=== PATIENT | male | born 1940 | race Caucasian/White ===

== ENCOUNTER 2018-09-13 17:22 | Emergency (ER) | payer OTHER ==
[~2018-09-13] VITALS: Ht 180.3 cm; Wt 98.6 kg
[~2018-09-13 17:22] MED LIST: ADVAIR 250/501 DISK INH; ASPIRIN 81 MG E81 MG PO; CARDIZEM LA360 MG; DESYREL50 MG PO; DOLOPHINE HCL10 MG PO; EFFEXOR75 MG PO; FLOMAX0.4 MG PO; FOLATE0.4 MG PO; GLUCOPHAGE500 MG PO; IMDUR60 MG PO; LANOXIN125 MCG PO; LIPITOR20 MG PO; NOVOLOG100 U/M1 SQ; PEPCID20 MG PO; PROSCAR5 MG PO; VOLTAREN75 MG PO; WELLBUTRIN XL300 M1 PO; ZEBETA10 MG PO
[2018-09-13 17:48] VITALS: Ht 180.3 cm; Wt 98.6 kg
[2018-09-13] MEDS ORDERED: PROVENTIL/2.5 MG/3 M INH (17:51)
[2018-09-13] MEDS ORDERED: SYMBICORT 16010.2 GM INH (17:53)
[2018-09-13] MEDS ORDERED: CELEXA20 MG PO (17:54)
[2018-09-13] MEDS ORDERED: COMBIVENT RESPIM4 GM INH (17:54)
[2018-09-13] MEDS ORDERED: VITAMIN B-121000 MCG PO (17:54)
[2018-09-13] MEDS ORDERED: HYDROCODON-ACE1 EA10 PO (17:55)
[2018-09-13] MEDS ORDERED: MAGNESIUM OXID420 MG PO (17:56)
[2018-09-13] MEDS ORDERED: LISINOPRIL2.5 MG PO (17:56)
[2018-09-13] MEDS ORDERED: NIZORAL 2 % SH120 ML TOPICAL (17:56)
[2018-09-13] MEDS ORDERED: OMEPRAZOLE20 M1 PO (17:58)
[2018-09-13] MEDS ORDERED: LOPRESSOR25 MG PO (17:58)
[2018-09-13] MEDS ORDERED: PRAVACHOL80 MG PO (17:58)
[2018-09-13] MEDS ORDERED: KENALOG 0.1 % O15 GM TOPICAL (17:59)
[2018-09-13] MEDS ORDERED: PREDNISONE5 MG PO (17:59)
[2018-09-13] MEDS ORDERED: FLOMAX0.4 MG PO (17:59)
[2018-09-13] MEDS ORDERED: TORADOL10 MG PO (20:12)
[2018-09-13 20:40] VITALS: BP 175/85
== END 2018-09-13 20:40 | disposition home or self-care (01) ==
LOC: D.ER 17:22
DX: S20.211A Contusion of right front wall of thorax, initial encounter (principal); W19.XXXA Unspecified fall, initial encounter; I10 Essential (primary) hypertension; E11.9 Type 2 diabetes mellitus without complications; J44.9 Chronic obstructive pulmonary disease, unspecified

== ENCOUNTER 2019-01-07 10:02 | Emergency (ER) | payer OTHER ==
[~2019-01-07] VITALS: Ht 180.3 cm; Wt 98.2 kg
[~2019-01-07 10:02] MED LIST changes: +CELEXA20 MG PO; +COMBIVENT RESPIM4 GM INH; +HYDROCODON-ACE1 EA10 PO; +KENALOG 0.1 % O15 GM TOPICAL; +LISINOPRIL2.5 MG PO; +LOPRESSOR25 MG PO; +MAGNESIUM OXID420 MG PO; +NIZORAL 2 % SH120 ML TOPICAL; +OMEPRAZOLE20 M1 PO; +PRAVACHOL80 MG PO; +PREDNISONE5 MG PO; +PROVENTIL/2.5 MG/3 M INH; +SYMBICORT 16010.2 GM INH; +TORADOL10 MG PO; +VITAMIN B-121000 MCG PO
[2019-01-07 10:14] VITALS: Ht 180.3 cm; Wt 98.2 kg
[2019-01-07] MEDS ORDERED: OPTIVE SENSITI1 EACH EACH EYE (10:22)
[2019-01-07] MEDS ORDERED: DILTIAZEM 24HR240 M4 PO (10:24)
[2019-01-07] MEDS ORDERED: DOK250 MG PO (10:26)
[2019-01-07] MEDS ORDERED: FERROUS FUMARA324 MG PO (10:26)
[2019-01-07] MEDS ORDERED: NEURONTIN 300300 MG PO (10:27)
[2019-01-07] MEDS ORDERED: ZADITOR5 ML EACH EYE (10:28)
[2019-01-07] MEDS ORDERED: LIDODERM 5 %1 PATCH TRANSDERM (10:29)
[2019-01-07] MEDS ORDERED: LIDOCAINE 5 % O35 GM TOPICAL (10:29)
[2019-01-07] MEDS ORDERED: MOBIC7.5 MG PO (10:32)
[2019-01-07] MEDS ORDERED: GLUCOPHAGE1000 MG PO (10:33)
[2019-01-07 12:06] LABS: BASOPHILS 0.1 % (0-2); EOSINOPHILS 1.5 % (0-7); HEMATOCRIT 38.7 % (42.0-54.0); HEMOGLOBIN 13.1 g/dL (13.5-17.5); IMMATURE GRANULOCYTES 0.2 % (0-5); LYMPHOCYTES 8.6 % (15-50); MCH 30.7 pg (26.0-34.0); MCHC 33.9 g/dL (31.0-37.0); MCV 90.6 fL (80.0-100.0); MEAN PLATELET VOLUME 10.5 fL (7.4-10.4); MONOCYTES 10.2 % (2-11); NEUTROPHILS 79.4 % (40-80); PLATELET COUNT 193 10x3/uL (130-400); RBC 4.27 10x6/uL (4.20-6.10); RDW 12.7 % (11.5-14.5); WBC 9.7 10x3/uL (4.8-10.8)
[2019-01-07 12:20] LABS: ALBUMIN 3.4 g/dL (3.4-5.0); ALKALINE PHOSPHATASE 77 U/L (46-116); ALT (SGPT) 22 U/L (10-68); BILIRUBIN - TOTAL 0.38 mg/dL (0.2-1.3); CALC OSMOLALITY 270 mosm/kg (275-300); CALCIUM 9.5 mg/dL (8.5-10.1); CARBON DIOXIDE 26.4 mmol/L (21.0-32.0); CHLORIDE - SERUM 100 mmol/L (98-107); CREATININE - SERUM 0.9 mg/dL (0.6-1.3); GLUCOSE 104 mg/dL (74-106); POTASSIUM - SERUM 4.2 mmol/L (3.5-5.1); PROTEIN - SERUM 6.9 g/dL (6.4-8.2); SODIUM 135 mmol/L (136-145); UREA NITROGEN 14 mg/dL (7-18); eGFR NON AFRICAN AMERICAN 87 mL/min (90-120)
[2019-01-07 17:21] VITALS: BP 144/96
== END 2019-01-07 20:12 | disposition other institution (70) ==
LOC: D.ER 10:02
PROVIDERS: Family Medicine
DX: H05.011 Cellulitis of right orbit (principal); E11.9 Type 2 diabetes mellitus without complications; I10 Essential (primary) hypertension; J44.9 Chronic obstructive pulmonary disease, unspecified; K21.9 Gastro-esophageal reflux disease without esophagitis

== ENCOUNTER 2019-04-26 16:44 | Emergency (ER) | payer OTHER ==
[~2019-04-26] VITALS: Ht 180.3 cm; Wt 95.9 kg
[~2019-04-26 16:44] MED LIST changes: +DILTIAZEM 24HR240 M4 PO; +DOK250 MG PO; +FERROUS FUMARA324 MG PO; +GLUCOPHAGE1000 MG PO; +LIDOCAINE 5 % O35 GM TOPICAL; +LIDODERM 5 %1 PATCH TRANSDERM; +MOBIC7.5 MG PO; +NEURONTIN 300300 MG PO; +OPTIVE SENSITI1 EACH EACH EYE; +ZADITOR5 ML EACH EYE
[2019-04-26 16:58] VITALS: Ht 180.3 cm; Wt 95.9 kg
[2019-04-26 18:40] VITALS: BP 105/78
== END 2019-04-26 18:42 | disposition home or self-care (01) ==
LOC: D.ER 16:44
DX: S61.412A Laceration without foreign body of left hand, initial encounter (principal); W19.XXXA Unspecified fall, initial encounter; Y93.01 Activity, walking, marching and hiking; Y92.9 Unspecified place or not applicable; E11.9 Type 2 diabetes mellitus without complications; Z79.84 Long term (current) use of oral hypoglycemic drugs; I10 Essential (primary) hypertension; J44.9 Chronic obstructive pulmonary disease, unspecified

== ENCOUNTER 2019-12-01 08:15 | Emergency (ER) | payer OTHER ==
[~2019-12-01] VITALS: Ht 180.3 cm; Wt 96.4 kg
[2019-12-01 08:17] VITALS: Ht 180.3 cm; Wt 96.4 kg
[2019-12-01 09:07] LABS: BASOPHILS 0.2 % (0-2); EOSINOPHILS 4.3 % (0-7); HEMATOCRIT 41.3 % (42.0-54.0); HEMOGLOBIN 13.5 g/dL (13.5-17.5); IMMATURE GRANULOCYTES 0.3 % (0-5); LYMPHOCYTES 17.5 % (15-50); MCH 31.5 pg (26.0-34.0); MCHC 32.7 g/dL (31.0-37.0); MCV 96.3 fL (80.0-100.0); MONOCYTES 8.2 % (2-11); NEUTROPHILS 69.5 % (40-80); RBC 4.29 10x6/uL (4.20-6.10); RDW 12.3 % (11.5-14.5); WBC 10.4 10x3/uL (4.8-10.8)
[2019-12-01 09:08] LABS: PLATELET COUNT 276 10x3/uL (130-400)
[2019-12-01 09:19] LABS: APTT 25.1 SECONDS (22.8-39.4); INR 1.05 (0.85-1.17); PROTIME 13.6 SECONDS (11.6-15.0)
[2019-12-01 09:29] LABS: CALC OSMOLALITY 277 mosm/kg (275-300); CALCIUM 9.1 mg/dL (8.5-10.1); CARBON DIOXIDE 33.1 mmol/L (21.0-32.0); CHLORIDE - SERUM 102 mmol/L (98-107); GLUCOSE 89 mg/dL (74-106); POTASSIUM - SERUM 4.2 mmol/L (3.5-5.1); SODIUM 140 mmol/L (136-145); UREA NITROGEN 12 mg/dL (7-18); eGFR NON AFRICAN AMERICAN 77 mL/min (90-120)
[2019-12-01 09:42] LABS: BILIRUBIN NEGATIVE (NEGATIVE); GLUCOSE NEGATIVE (NEGATIVE); KETONE NEGATIVE (NEGATIVE); NITRITE NEGATIVE (NEGATIVE); SPECIFIC GRAVITY 1.015 (1.005-1.020); UROBILINOGEN NORMAL (NORMAL)
[2019-12-01 09:44] LABS: ALBUMIN 3.4 g/dL (3.4-5.0); ALKALINE PHOSPHATASE 76 U/L (30-120); ALT (SGPT) 18 U/L (10-68); BILIRUBIN - TOTAL 0.26 mg/dL (0.2-1.3); CKMB 3.7 U/L (0.0-3.6); CREATINE KINASE 128 UL (21-232); MAGNESIUM - SERUM 1.4 mg/dL (1.8-2.4); PROTEIN - SERUM 6.9 g/dL (6.4-8.2); THYROID STIMULATING HORMONE 2.06 uIU/mL (0.36-3.74)
[2019-12-01 09:48] LABS: TROPONIN-I < 0.017 ng/mL (0.000-0.060)
[2019-12-01 09:59] LABS: UDS - AMPHET NEGATIVE QUAL (NEGATIVE); UDS - BARB NEGATIVE QUAL (NEGATIVE); UDS - BENZO NEGATIVE QUAL (NEGATIVE); UDS - COCAINE NEGATIVE QUAL (NEGATIVE); UDS - OPIATE POSITIVE QUAL (NEGATIVE); UDS - PCP NEGATIVE QUAL (NEGATIVE); UDS - THC NEGATIVE QUAL (NEGATIVE)
[2019-12-01 12:16] VITALS: BP 132/76
== END 2019-12-01 12:17 | disposition home or self-care (01) ==
LOC: D.ER 08:15
PROVIDERS: Family Medicine
DX: R53.81 Other malaise (principal); J44.9 Chronic obstructive pulmonary disease, unspecified; R25.1 Tremor, unspecified; E11.9 Type 2 diabetes mellitus without complications; I10 Essential (primary) hypertension; Z79.84 Long term (current) use of oral hypoglycemic drugs; Z99.81 Dependence on supplemental oxygen

== ENCOUNTER 2020-02-06 09:37 | Inpatient (IN) | payer OTHER ==
[~2020-02-06] VITALS: Ht 180.3 cm; Wt 95.7 kg
[2020-02-06] VITALS (7 sets, daily range): BP systolic 105–134; BP diastolic 62–75; BMI 26.1
[2020-02-06 10:11] LABS: BASOPHILS 0.2 % (0-2); EOSINOPHILS 1.8 % (0-7); HEMATOCRIT 43.7 % (42.0-54.0); HEMOGLOBIN 14.5 g/dL (13.5-17.5); IMMATURE GRANULOCYTES 0.3 % (0-5); LYMPHOCYTES 9.3 % (15-50); MCH 30.8 pg (26.0-34.0); MCHC 33.2 g/dL (31.0-37.0); MCV 92.8 fL (80.0-100.0); MEAN PLATELET VOLUME 9.9 fL (7.4-10.4); MONOCYTES 9.3 % (2-11); NEUTROPHILS 79.1 % (40-80); PLATELET COUNT 265 10x3/uL (130-400); RBC 4.71 10x6/uL (4.20-6.10); RDW 12.1 % (11.5-14.5); WBC 10.6 10x3/uL (4.8-10.8)
[2020-02-06 10:18] LABS: ANION GAP 14.6 mmol/L (8-16); CALCIUM 9.1 mg/dL (8.5-10.1); CARBON DIOXIDE 28.4 mmol/L (21.0-32.0); CREATININE - SERUM 1.2 mg/dL (0.6-1.3)
[2020-02-06 10:21] LABS: APTT 28.8 SECONDS (22.8-39.4); INR 1.19 (0.85-1.17)
[2020-02-06 10:34] LABS: ALBUMIN 3.6 g/dL (3.4-5.0); BILIRUBIN - TOTAL 0.38 mg/dL (0.2-1.3); PROTEIN - SERUM 7.7 g/dL (6.4-8.2)
--- NOTE | 2020-02-06 17:20 | NUR ---
ARRIVE TO ROOM VIA STRETCHER FROM ER ACCOMPANIED BY ER STAFF. ER TREATS FOR BED BUGS BEFORE ARRIVING TO FLOOR. DANIELLE WHITAKER COMPLETES ADMISSION.
--- NOTE | 2020-02-06 17:25 | NUR ---
RECIEVED PT FROM ED VIA STRETCHER PT A&OX4 TRANSFERED FROM STRETCHER TO BED. NO COMPLAINTS AT THIS TIME.
--- NOTE | 2020-02-06 19:00 | NUR ---
REPORT RECEIVED, WILL CONTINUE POC. PATIENT IS AAOX4, SITTING UP IN BED. NO S/S OF DISTRESS OBSERVED, RR EVEN AND UNLABORED ON 2L O2 VIA NC. PATIENT REQUESTING HIS MEDS. INFORMED PATIENT OF WHEN HIS MEDS ARE DO, PATIENT STATES UNDERSTANDING. PATIENT DENIES FURTHER NEEDS AT THIS TIME. CL IN REACH, BED LOCKED AND LOWERED. CONTACT PRECAUTIONS MAINTAINED. WILL CTM.
--- NOTE | 2020-02-07 01:10 | NUR ---
I have reviewed this patient and I concur with the Shift Assessment completed by the Licensed Practical Nurse today this shift.
[2020-02-07 04:02] VITALS: BP 145/90
[2020-02-07 06:47] LABS: BASOPHILS 0.2 % (0-2); EOSINOPHILS 4.2 % (0-7); HEMOGLOBIN 13.1 g/dL (13.5-17.5); IMMATURE GRANULOCYTES 0.3 % (0-5); MCH 30.5 pg (26.0-34.0); MCHC 32.8 g/dL (31.0-37.0); MCV 93.2 fL (80.0-100.0); MEAN PLATELET VOLUME 10.3 fL (7.4-10.4); MONOCYTES 9.2 % (2-11); NEUTROPHILS 60.1 % (40-80); PLATELET COUNT 214 10x3/uL (130-400); RBC 4.29 10x6/uL (4.20-6.10); RDW 12.2 % (11.5-14.5)
[2020-02-07 06:54] LABS: WBC 5.8 10x3/uL (4.8-10.8)
[2020-02-07 07:00] LABS: ALBUMIN 3.1 g/dL (3.4-5.0); ALKALINE PHOSPHATASE 76 U/L (30-120); ALT (SGPT) 15 U/L (10-68); BILIRUBIN - TOTAL 0.18 mg/dL (0.2-1.3); CALC OSMOLALITY 279 mosm/kg (275-300); CALCIUM 8.4 mg/dL (8.5-10.1); CARBON DIOXIDE 29.7 mmol/L (21.0-32.0); CHLORIDE - SERUM 103 mmol/L (98-107); GLUCOSE 91 mg/dL (74-106); MAGNESIUM - SERUM 1.4 mg/dL (1.8-2.4); POTASSIUM - SERUM 3.6 mmol/L (3.5-5.1); PROTEIN - SERUM 6.2 g/dL (6.4-8.2); SODIUM 141 mmol/L (136-145); UREA NITROGEN 11 mg/dL (7-18)
[2020-02-07 07:01] LABS: CREATININE - SERUM 0.8 mg/dL (0.6-1.3); eGFR NON AFRICAN AMERICAN > 90 mL/min (90-120)
[2020-02-07 07:58] VITALS: BP 132/76
--- NOTE | 2020-02-07 08:12 | NUR ---
AM ROUNDING DONE WITH PATIENT IN CONTACT ISOLATION. GRAND TRAVERSE, RIGHT FA PIV SEEN WITH NS INFUSING AT 75 CC/HR. ON 2L PER NC. BILATERAL SCD ARE ON AND IN USE CORRECTLY. ON EP, WILL LOOK FOR LABS. DENIES NEEDS AT THIS TIME.
[2020-02-07 11:53] VITALS: BP 146/75
[2020-02-07 12:40] LABS: BILIRUBIN NEGATIVE (NEGATIVE); KETONE NEGATIVE (NEGATIVE); NITRITE NEGATIVE (NEGATIVE); UROBILINOGEN NORMAL mg/dL (< 2)
[2020-02-07 13:31] VITALS: Ht 180.3 cm; Wt 95.7 kg
--- NOTE | 2020-02-07 16:07 | MORECARE ---
CASE MANAGEMENT DISCHARGE SUMMARY PATIENT: ANNIE GALLARDO DANILO UNIT: [id number] ADM DATE: 02/06/20 AGE: 79 : 42 SEX: M ROOM/BED: D.2105 AUTHOR: ANATOLY HARRISON PHYSICIAN: REFERRING PHYSICIAN: STEFANO AUSTIN MD DATE OF SERVICE: 02/07/20 Discharge Plan Patient Name: ANNIE GALLARDO Facility: [facility]:[place] : 1940 Planned Disposition: Home Anticipated Discharge Date: Discharge Date: Expected LOS: Initial Reviewer: [email or web address] Initial Review Date: 02/07/2020 Generated: 02/07/20 5:07 pm Patient Name: ANNIE GALALRDO Page 22399 at 1607 All edits/amendments must be made on the electronic document DICTATION DATE: 02/07/201606 SKIMMER SCOOP OPERATOR: HUNG 02/07/201606 RPT#: [id number] DC DATE: STATUS: ADM IN [facility] [address] [place] [address] END OF REPORT
[2020-02-07 16:10] VITALS: BP 94/70
--- NOTE | 2020-02-07 16:17 | MORECARE ---
CASE MANAGEMENT DISCHARGE SUMMARY PATIENT: ANNIE GALLARDO DANILO UNIT: [id number] ADM DATE: 02/06/20 AGE: 79 : 42 SEX: M ROOM/BED: D.2105 AUTHOR: ANATOLY HARRISON PHYSICIAN: REFERRING PHYSICIAN: STEFANO AUSTIN MD DATE OF SERVICE: 02/07/20 Discharge Plan Patient Name: ANNIE GALLARDO [facility] [facility] 1940 Planned Disposition: Home Anticipated Discharge Date: Discharge Date: Expected LOS: Initial Reviewer: [email or web address] Initial Review Date: 02/07/2020 Generated: 02/07/20 5:16 pm DCPIA - Discharge Planning Initial Assessment Updated by [email or web address]: Aye Johnson on 02/07/20 4:14 pm * Is the patient Alert and Oriented? Yes * How many steps to enter\exit or inside your home? 0/0 * PCP [place] clinic in [place] * Pharmacy [facility] * Preadmission Environment Home with Family * ADLs Partial Dependent * Partial ADLs (Assistance needed) Ambulation Medication Management * Equipment Cane Walker Wheelchair * List name and contact numbers for known caregivers / representatives who currently or will assist patient after discharge: Suzy Fraser - caregiver - [phone] Quang Mcelroyin - [phone] Suzy Plasencia - girlfriend - no phone * Verbal permission to speak to the caregivers and representatives has been obtained from the patient. Yes * Community resources currently utilized [place] Services * Please name any agencies selected above. [facility] * Additional services required to return to the preadmission environment? Yes * Can the patient safely return to the preadmission environment? Yes * Has this patient been hospitalized within the prior 30 days at any hospital? No Last DP export: 02/07/20 3:07 p Patient Name: ANNIE GALLARDO Page 44415 at 1617 All edits/amendments must be made on the electronic document DICTATION DATE: 02/07/20 1616 MANAGER MAIL: HUNG 02/07/20 1616 RPT#: [id number] DC DATE: STATUS: ADM IN [facility] [address] [place] [address] END OF REPORT
--- NOTE | 2020-02-07 16:26 | MORECARE ---
CASE MANAGEMENT DISCHARGE SUMMARY PATIENT: ANNIE GALLARDO DANILO UNIT: [id number] ADM DATE: 02/06/20 AGE: 79 : 42 SEX: M ROOM/BED: D.2105 AUTHOR: ANATOLY HARRISON PHYSICIAN: REFERRING PHYSICIAN: STEFANO AUSTIN MD DATE OF SERVICE: 02/07/20 Discharge Plan Patient Name: ANNIE GALLARDO [facility] [facility] 1940 Planned Disposition: Home Anticipated Discharge Date: Discharge Date: Expected LOS: Initial Reviewer: [email or web address] Initial Review Date: 02/07/2020 Generated: 02/07/20 5:25 pm DCPIA - Discharge Planning Initial Assessment Updated by [email or web address]: Aye Johnson on 02/07/20 4:14 pm * Is the patient Alert and Oriented? Yes * How many steps to enter\exit or inside your home? 0/0 * PCP [place] clinic in [place] * Pharmacy [facility] * Preadmission Environment Home with Family * ADLs Partial Dependent * Partial ADLs (Assistance needed) Ambulation Medication Management * Equipment Cane Walker Wheelchair * List name and contact numbers for known caregivers / representatives who currently or will assist patient after discharge: Suzy Fraser - caregiver - [phone] Quang Mcelroyin - [phone] Suzy Plasencia - girlfriend - no phone * Verbal permission to speak to the caregivers and representatives has been obtained from the patient. Yes * Community resources currently utilized [place] Services * Please name any agencies selected above. [facility] * Additional services required to return to the preadmission environment? Yes * Can the patient safely return to the preadmission environment? Yes * Has this patient been hospitalized within the prior 30 days at any hospital? No Last DP export: 02/07/20 3:17 p Patient Name: ANNIE GALLARDO Page 26920 at 1626 All edits/amendments must be made on the electronic document DICTATION DATE: 02/07/201625 PLANT FLOOR AUTOMATION MANAGER: HUNG 02/07/206 RPT#: [id number] DC DATE: STATUS: ADM IN [facility] [address] [place] [address] END OF REPORT
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
--- NOTE | 2020-02-07 16:42 | NUR ---
IN ISOLATION STILL, REGULAR DIET IF OFFERED FOR SUPPER. STATES HE IS VERY HAPPY WITH THIS.
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
--- NOTE | 2020-02-07 18:44 | NUR ---
LOURDES GREEN TO CALL BACK AND TELL ME THAT HE IS IN A COVID ROOM AND WILL CALL BACK.
--- NOTE | 2020-02-07 21:00 | NUR ---
PT ASST TO RESTROOM, STATES HE IS CONSTIPATED. SM DARK BM NOTED. STATES IS COULD BE GAS PAIN FROM HIS HERNIA. UPSET WE DONT HAVE PEPTO BUT REFUSES OTHER OPTIONS. CALL LIGHT IN REACH. WILL CTM.
[2020-02-07 22:07] VITALS: BP 118/71
[2020-02-08 02:07] VITALS: BP 141/66
--- NOTE | 2020-02-08 05:02 | NUR ---
PT STATES GAS AND ABD HERNIA PAINS ARE BETTER THIS AM. ENCOURAGED CALL LIGHT FOR ASSISTANCE. WILL CTM.
[2020-02-08 05:48] LABS: BASOPHILS 0 % (0-2); EOSINOPHILS 3.5 % (0-7); HEMATOCRIT 38.6 % (42.0-54.0); HEMOGLOBIN 12.7 g/dL (13.5-17.5); IMMATURE GRANULOCYTES 0.2 % (0-5); LYMPHOCYTES 22.1 % (15-50); MCH 30.6 pg (26.0-34.0); MCHC 32.9 g/dL (31.0-37.0); MEAN PLATELET VOLUME 9.9 fL (7.4-10.4); MONOCYTES 6.4 % (2-11); NEUTROPHILS 67.8 % (40-80); PLATELET COUNT 215 10x3/uL (130-400); RBC 4.15 10x6/uL (4.20-6.10); WBC 6.4 10x3/uL (4.8-10.8)
[2020-02-08 05:51] VITALS: BP 110/74
[2020-02-08 06:16] LABS: ALBUMIN 2.7 g/dL (3.4-5.0); ALKALINE PHOSPHATASE 63 U/L (30-120); ALT (SGPT) 13 U/L (10-68); BILIRUBIN - TOTAL 0.36 mg/dL (0.2-1.3); CALCIUM 8.1 mg/dL (8.5-10.1); CARBON DIOXIDE 25.1 mmol/L (21.0-32.0); CHLORIDE - SERUM 104 mmol/L (98-107); CREATININE - SERUM 0.8 mg/dL (0.6-1.3); GLUCOSE 96 mg/dL (74-106); MAGNESIUM - SERUM 1.2 mg/dL (1.8-2.4); PROTEIN - SERUM 6.2 g/dL (6.4-8.2); SODIUM 138 mmol/L (136-145); eGFR NON AFRICAN AMERICAN > 90 mL/min (90-120)
[2020-02-08 06:20] LABS: CALC OSMOLALITY 273 mosm/kg (275-300); UREA NITROGEN 7 mg/dL (7-18)
--- NOTE | 2020-02-08 08:00 | NUR ---
PT SITTING UP IN BED, RR SLIGHTLY LABORED UPON EXERTION ON 4L NC. COFFEE AND WATER RECIEVED PER REQUEST. CALL LIGHT WITHIN REACH. DEPENDS CHANGED AND PT CLEANED, SMALL BM. DENIES FURTHER NEEDS OR PAIN AT THIS TIME. WILL CONTINUE TO MONITOR.
[2020-02-08 09:37] VITALS: BP 163/76
[2020-02-08 13:18] LABS: C-REACTIVE PROTEIN 0.6 mg/dL (0.0-0.9)
[2020-02-08 15:00] VITALS: BP 134/104
[2020-02-08 20:00] VITALS: BP 157/74
[2020-02-09 00:02] VITALS: BP 136/71
[2020-02-09 04:20] VITALS: BP 155/86
[2020-02-09 05:10] LABS: BASOPHILS 0 % (0-2); EOSINOPHILS 0 % (0-7); HEMATOCRIT 37.7 % (42.0-54.0); HEMOGLOBIN 12.5 g/dL (13.5-17.5); IMMATURE GRANULOCYTES 0.5 % (0-5); LYMPHOCYTES 7.8 % (15-50); MCH 30.9 pg (26.0-34.0); MCHC 33.2 g/dL (31.0-37.0); MCV 93.1 fL (80.0-100.0); MONOCYTES 3.2 % (2-11); NEUTROPHILS 88.5 % (40-80); PLATELET COUNT 233 10x3/uL (130-400); RBC 4.05 10x6/uL (4.20-6.10); WBC 6.2 10x3/uL (4.8-10.8)
[2020-02-09 05:22] LABS: ALKALINE PHOSPHATASE 85 U/L (30-120); ALT (SGPT) 11 U/L (10-68); BILIRUBIN - TOTAL 0.17 mg/dL (0.2-1.3); CALCIUM 8.6 mg/dL (8.5-10.1); CARBON DIOXIDE 27.1 mmol/L (21.0-32.0); CHLORIDE - SERUM 100 mmol/L (98-107); CREATININE - SERUM 0.8 mg/dL (0.6-1.3); MAGNESIUM - SERUM 1.2 mg/dL (1.8-2.4); POTASSIUM - SERUM 4.1 mmol/L (3.5-5.1); PROTEIN - SERUM 6.5 g/dL (6.4-8.2); SODIUM 136 mmol/L (136-145); eGFR NON AFRICAN AMERICAN > 90 mL/min (90-120)
[2020-02-09 05:24] LABS: CALC OSMOLALITY 278 mosm/kg (275-300); GLUCOSE 218 mg/dL (74-106); UREA NITROGEN 12 mg/dL (7-18)
--- NOTE | 2020-02-09 07:20 | NUR ---
RECIEVE REPORT. RESTING IN BED WITH EYES CLOSED. NO SIGNS OF DISTRESS. CONTINUE PLAN OF CARE AND SAFETY PRECAUTIONS.
[2020-02-09 08:34] VITALS: BP 147/87
[2020-02-09 20:00] VITALS: BP 146/51
[2020-02-10 05:31] LABS: BASOPHILS 0 % (0-2); EOSINOPHILS 0 % (0-7); HEMATOCRIT 36.4 % (42.0-54.0); HEMOGLOBIN 12.2 g/dL (13.5-17.5); IMMATURE GRANULOCYTES 0.2 % (0-5); LYMPHOCYTES 4.4 % (15-50); MCH 30.8 pg (26.0-34.0); MCHC 33.5 g/dL (31.0-37.0); MCV 91.9 fL (80.0-100.0); MEAN PLATELET VOLUME 10.5 fL (7.4-10.4); MONOCYTES 7.6 % (2-11); NEUTROPHILS 87.8 % (40-80); PLATELET COUNT 235 10x3/uL (130-400); RBC 3.96 10x6/uL (4.20-6.10); RDW 11.9 % (11.5-14.5)
[2020-02-10 05:51] LABS: WBC 12.5 10x3/uL (4.8-10.8)
[2020-02-10 05:52] LABS: ALBUMIN 2.9 g/dL (3.4-5.0); ALKALINE PHOSPHATASE 74 U/L (30-120); BILIRUBIN - TOTAL 0.11 mg/dL (0.2-1.3); CALCIUM 8.7 mg/dL (8.5-10.1); CHLORIDE - SERUM 102 mmol/L (98-107); CREATININE - SERUM 0.8 mg/dL (0.6-1.3); MAGNESIUM - SERUM 1.5 mg/dL (1.8-2.4); POTASSIUM - SERUM 3.7 mmol/L (3.5-5.1); PROTEIN - SERUM 6.5 g/dL (6.4-8.2); SODIUM 136 mmol/L (136-145); eGFR NON AFRICAN AMERICAN > 90 mL/min (90-120)
[2020-02-10 06:08] LABS: ALT (SGPT) 14 U/L (10-68); CALC OSMOLALITY 275 mosm/kg (275-300); GLUCOSE 156 mg/dL (74-106); UREA NITROGEN 16 mg/dL (7-18)
[2020-02-10 09:28] VITALS: BP 161/82
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
[2020-02-10 12:26] VITALS: BP 163/77
--- NOTE | 2020-02-10 13:53 | NUR ---
Nutrition Follow-up: Pt in droplet isolation; covid-19+. Chart reviewed. Good/fair PO intake recorded. Diet: Regular, Mech Soft PO intake: 75% avg x 3 meals yesterday Wt: 212# (02/06) Labs noted: Glu 156, Mg 1.5, Alb 2.9 Meds noted: Protonix, NS @ 75, electrolyte protocol -Encourage PO intake and honor food preferences within diet restrictions. -Monitor wt; noted daily wts ordered. -RD following.
[2020-02-10 16:13] VITALS: BP 139/83
--- NOTE | 2020-02-10 18:32 | NUR ---
I have reviewed this patient and I concur with the Shift Assessment completed by the Licensed Practical Nurse today this shift.
[2020-02-10 20:00] VITALS: BP 147/60
[2020-02-11 04:00] VITALS: BP 172/68
[2020-02-11 06:36] LABS: BASOPHILS 0 % (0-2); EOSINOPHILS 0.2 % (0-7); HEMATOCRIT 38.1 % (42.0-54.0); HEMOGLOBIN 12.5 g/dL (13.5-17.5); IMMATURE GRANULOCYTES 0.5 % (0-5); LYMPHOCYTES 10.5 % (15-50); MCH 30.5 pg (26.0-34.0); MCHC 32.8 g/dL (31.0-37.0); MCV 92.9 fL (80.0-100.0); MEAN PLATELET VOLUME 10.3 fL (7.4-10.4); MONOCYTES 8.6 % (2-11); NEUTROPHILS 80.2 % (40-80); PLATELET COUNT 241 10x3/uL (130-400); RDW 12.2 % (11.5-14.5)
[2020-02-11 06:57] LABS: ALBUMIN 2.9 g/dL (3.4-5.0); ALKALINE PHOSPHATASE 76 U/L (30-120); ALT (SGPT) 16 U/L (10-68); BILIRUBIN - TOTAL 0.11 mg/dL (0.2-1.3); CALC OSMOLALITY 280 mosm/kg (275-300); CALCIUM 8.7 mg/dL (8.5-10.1); CARBON DIOXIDE 31.7 mmol/L (21.0-32.0); CHLORIDE - SERUM 103 mmol/L (98-107); CREATININE - SERUM 0.8 mg/dL (0.6-1.3); GLUCOSE 142 mg/dL (74-106); MAGNESIUM - SERUM 1.5 mg/dL (1.8-2.4); POTASSIUM - SERUM 3.7 mmol/L (3.5-5.1); PROTEIN - SERUM 6.3 g/dL (6.4-8.2); SODIUM 139 mmol/L (136-145); UREA NITROGEN 15 mg/dL (7-18); eGFR NON AFRICAN AMERICAN > 90 mL/min (90-120)
[2020-02-11 08:33] VITALS: BP 159/83
[2020-02-11 14:22] LABS: ALBUMIN 2.8 g/dL (3.4-5.0); ALKALINE PHOSPHATASE 74 U/L (30-120); ALT (SGPT) 18 U/L (10-68); BILIRUBIN - TOTAL 0.12 mg/dL (0.2-1.3); CALC OSMOLALITY 282 mosm/kg (275-300); CALCIUM 8.7 mg/dL (8.5-10.1); CARBON DIOXIDE 31.6 mmol/L (21.0-32.0); CHLORIDE - SERUM 104 mmol/L (98-107); CREATININE - SERUM 0.8 mg/dL (0.6-1.3); POTASSIUM - SERUM 4.1 mmol/L (3.5-5.1); PROTEIN - SERUM 5.8 g/dL (6.4-8.2); SODIUM 138 mmol/L (136-145); UREA NITROGEN 14 mg/dL (7-18); eGFR NON AFRICAN AMERICAN > 90 mL/min (90-120)
[2020-02-11 14:23] LABS: GLUCOSE 214 mg/dL (74-106)
[2020-02-11 14:32] LABS: BASOPHILS 0.1 % (0-2); EOSINOPHILS 0 % (0-7); HEMATOCRIT 37.9 % (42.0-54.0); HEMOGLOBIN 12.3 g/dL (13.5-17.5); IMMATURE GRANULOCYTES 0.7 % (0-5); LYMPHOCYTES 6.8 % (15-50); MCH 30.4 pg (26.0-34.0); MCHC 32.5 g/dL (31.0-37.0); MCV 93.6 fL (80.0-100.0); MEAN PLATELET VOLUME 10.1 fL (7.4-10.4); MONOCYTES 3.7 % (2-11); NEUTROPHILS 88.7 % (40-80); PLATELET COUNT 229 10x3/uL (130-400); RBC 4.05 10x6/uL (4.20-6.10); RDW 12.2 % (11.5-14.5); WBC 9.2 10x3/uL (4.8-10.8)
--- NOTE | 2020-02-11 18:26 | NUR ---
I have reviewed this patient and I concur with the Shift Assessment completed by the Licensed Practical Nurse today this shift.
--- NOTE | 2020-02-11 19:00 | NUR ---
REPORT RECEIVED, WILL CONTINUE POC. PATIENT RESTING ON LEFT SIDE WITH EYES CLOSED. NO S/S OF DISTRESS OBSERVED, RR EVEN AND UNLABORED ON 4L O2 VIA NC. PIV TO LT FA, PATENT, INFUSING NS @ 75ML/HR. NO NEEDS EXPRESSED AT THIS TIME. CL IN REACH, BED LOCKED AND LOWERED. COVID-19 PRECAUTIONS MAINTAINED. WILL CTM.
[2020-02-11 20:00] VITALS: BP 123/56
[2020-02-12 03:52] VITALS: BP 156/83
[2020-02-12 04:31] LABS: ALT (SGPT) 21 U/L (10-68)
[2020-02-12 11:04] VITALS: BP 154/69
[2020-02-12 21:00] VITALS: BP 136/87
[2020-02-13 03:00] VITALS: BP 162/78
[2020-02-13 05:10] LABS: BASOPHILS 0.1 % (0-2); EOSINOPHILS 0.2 % (0-7); HEMATOCRIT 37.5 % (42.0-54.0); HEMOGLOBIN 12.4 g/dL (13.5-17.5); IMMATURE GRANULOCYTES 1.5 % (0-5); LYMPHOCYTES 5.2 % (15-50); MCH 30.3 pg (26.0-34.0); MCHC 33.1 g/dL (31.0-37.0); MCV 91.7 fL (80.0-100.0); MEAN PLATELET VOLUME 10.4 fL (7.4-10.4); MONOCYTES 6.4 % (2-11); NEUTROPHILS 86.6 % (40-80); PLATELET COUNT 239 10x3/uL (130-400); RBC 4.09 10x6/uL (4.20-6.10); RDW 12.1 % (11.5-14.5); WBC 11.4 10x3/uL (4.8-10.8)
[2020-02-13 05:18] LABS: ALBUMIN 2.7 g/dL (3.4-5.0); ALKALINE PHOSPHATASE 86 U/L (30-120); ALT (SGPT) 19 U/L (10-68); BILIRUBIN - TOTAL 0.18 mg/dL (0.2-1.3); CALC OSMOLALITY 284 mosm/kg (275-300); CARBON DIOXIDE 28.7 mmol/L (21.0-32.0); CHLORIDE - SERUM 101 mmol/L (98-107); CREATININE - SERUM 0.9 mg/dL (0.6-1.3); GLUCOSE 243 mg/dL (74-106); PROTEIN - SERUM 5.9 g/dL (6.4-8.2); SODIUM 137 mmol/L (136-145); eGFR NON AFRICAN AMERICAN 87 mL/min (90-120)
[2020-02-13 05:19] LABS: UREA NITROGEN 20 mg/dL (7-18)
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
--- NOTE | 2020-02-13 16:15 | NUR ---
PT SIGNED PROPER DISCHARGE INSTRUCTIONS AND REMOVED ALL VALUABLES FROM THE ROOM. BOTH PIV'S REMOVED WITH CATHETER TIPS FULLY INTACT.
--- NOTE | 2020-02-17 08:55 | MORECARE ---
CASE MANAGEMENT DISCHARGE SUMMARY PATIENT: ANNIE GALLARDO UNIT: [id number] ADM DATE: 02/06/20 AGE: 79 : 44 SEX: M ROOM/BED: D.2134 AUTHOR: HUNTER,DOC PHYSICIAN: REFERRING PHYSICIAN: STEFANO AUSTIN MD DATE OF SERVICE: 02/17/20 Discharge Plan Patient Name: ANNIE GALLARDO Facility: [facility]:[place] : 1940 Planned Disposition: Home Anticipated Discharge Date: Discharge Date: 02/13/2020 Expected LOS: Initial Reviewer: [email or web address] Initial Review Date: 02/07/2020 Generated: 02/17/20 9:55 am Comments DCP- Discharge Planning Updated by [email or web address]: Dilia Love on 02/13/20 7:[address] CM contacted patient, via phone for any DC needs. Patient is very [place], states he lives with his girl friend, Suzy Plasencia, at [address] [place] [address].. States he has a caregiver, [phone]), who will get in touch with Quang Davidson ([phone]) to take him home. Patient voices no additional needs at this time. DCP- Discharge Planning Updated by [email or web address]: Lindsay Leon on 02/10/20 8:[address] CM spoke via phone with pt per isolation protocol about dc needs. Patient states that he lives with his girfriend Suzy who takes good care of him. States he wants to go home when discharged, but know he and his private duty caregiver has covid. States he has an [employer] for home and portable oxygen. States he uses it as needed at home, and will not need home and portable oxygen. States his girlfriend or paid caregiver will pick him up when discharged. Lindsay Leon DCP- Discharge Planning Updated by [email or web address]: Aye Johnson on 02/07/20 3:[address] Patient Name: ANNIE GALLARDO Admission Status: ER Accout number: [id number] Admission Date: 02-06-2020 : 1940 Admission Diagnosis:DEHYDRATION Attending: REG Current LOS: 1 Anticipated DC Date: Planned Disposition: Home Primary Insurance: [employer] Discharge Planning Comments: CM called patient on the phone to discuss discharge planning/needs (per Isolation protocol). He states that he lives with his girl friend, Suzy Plasencia. He states that he has a cane, walker and a wheelchair if needed. He states that he used to have a CPAP, but doesn't have one any more. He states that he still drives. States he sees the doctor at the [facility] in [place]. I I informed him that his physician states that he needed mcfp placement because he is unable to care for himself. Patient states "I am not going to no mcfp." He states that his family member caretaker sets up his medicine for him and fixes his meals. I asked if his family member caretaker knew about his bed bugs and he said, "yes, she is going to spray the house while I am here."Permission received to call his family member caretaker. I called Suzy Fraser and she states that patient is never alone and that she helps with [facility] [place] when needed , drives him to the store for groceries, cooks for him. She states she also orders and sets up his medication for him. I informed her that he had bed bugs all over him when he was in the ED and she states she has already called the [facility] and they will spray on Monday. She states that his friend, Quang, will take him home on discharge. [facility] called the [facility] and spoke with Ivette. Ivette states that they have been aware of his admission from the ED. States that he cannot go to a [facility] contracted m[facility] per the [facility] because he is not 70%. States if he goes to a mcfp, he would need to use Medicare or Medicaid benefits. I have called [employer] to see if he has these benefits. [facility] called and a report filed. I spoke with Mary Carmen. CM will continue to follow and assist with discharge planning/needs. Allergy Physician: Aye Johnson DCPIA - Discharge Planning Initial Assessment Updated by [email or web address]: Aye Johnson on 02/07/20 4:14 pm * Is the patient Alert and Oriented? Yes * How many steps to enter\\exit or inside your home? 0/0 * PCP [facility] clinic in [place] * Pharmacy [facility] * Preadmission Environment Home with Family * ADLs Partial Dependent * Partial ADLs (Assistance needed) Ambulation Medication Management * Equipment Cane Walker Wheelchair * List name and contact numbers for known caregivers / representatives who currently or will assist patient after discharge: Suzy Fraser - caregiver - [phone] Quang Mcelroyin - [phone] Suzy Plasencia - girlfriend - no phone * Verbal permission to speak to the caregivers and representatives has been obtained from the patient. Yes * Community resources currently utilized [facility] Services * Please name any agencies selected above. [facility] * Additional services required to return to the preadmission environment? Yes * Can the patient safely return to the preadmission environment? Yes * Has this patient been hospitalized within the prior 30 days at any hospital? No Last DP export: 02/13/20 7:22 a Patient Name: ANNIE GALLARDO Page [id number] at 0855 All edits/amendments must be made on the electronic document DICTATION DATE: 02/17/20854 HORTICULTURE WORKER: HUNG 02/17/20854 RPT#: [id number] DC DATE:02/13/20 STATUS: DIS IN [facility] [address] [place] [id number] END OF REPORT
== END 2020-02-13 16:50 | disposition home or self-care (01) | DRG 177 ==
LOC: D.ER 09:37 → D.M2 15:28 → D.SDCHOLD 02-10 14:35 → D.M2 02-10 14:37
PROVIDERS: Family Medicine; Internal Medicine Pulmonary Disease; ADMIT Family Medicine; ATTEND Family Medicine
PROC: XW033E5 Introduction of Remdesivir Anti-infective into Peripheral Vein, Percutaneous Approach, New Technology Group 5 (ICD-10-PCS; principal; 2020-02-09)
DX: U07.1 COVID-19 (principal); J12.89 Other viral pneumonia; J96.21 Acute and chronic respiratory failure with hypoxia; N17.9 Acute kidney failure, unspecified; J44.1 Chronic obstructive pulmonary disease with (acute) exacerbation; J44.0 Chronic obstructive pulmonary disease with (acute) lower respiratory infection; E86.0 Dehydration; R19.7 Diarrhea, unspecified; E11.65 Type 2 diabetes mellitus with hyperglycemia; I10 Essential (primary) hypertension; I25.10 Atherosclerotic heart disease of native coronary artery without angina pectoris; N40.0 Benign prostatic hyperplasia without lower urinary tract symptoms; G89.29 Other chronic pain; M54.9 Dorsalgia, unspecified; F41.8 Other specified anxiety disorders; R00.0 Tachycardia, unspecified; R26.9 Unspecified abnormalities of gait and mobility; Z86.73 Personal history of transient ischemic attack (TIA), and cerebral infarction without residual deficits